=== PATIENT | male | born 1970 | race Caucasian/White ===

== ENCOUNTER → 2019-08-16 16:14 | Outpatient (CLI) | payer SELFPAY ==
--- NOTE | 2019-08-16 16:30 | RAD_ITS ---
HISTORY: CHRONIC LOW BACK PAIN, FLAIRED UP CURRENTLY D/T FALL ONTO WOOD PILE AND HEAVY LIFTING OVER LAST WEEK, PAIN RADIATES INTO RIGHT LEG TECHNIQUE: Lumbar spine 3 views Number of images including paperwork: 3 COMPARISON: Lumbar spine 3 views FINDINGS: VERTEBRAE: No acute fracture. VERTEBRAL ALIGNMENT: No traumatic subluxation. DISKS AND JOINTS: Mild disc space narrowing at L5-S1. SOFT TISSUES: Unremarkable paraspinous soft tissues. RAD/Lumbar Spine 2 or 3 Views IMPRESSION: No acute osseous abnormality. Mild disc space narrowing at L5-S1. at 2311 Reported and signed by: Joan Copeland MD Electronically Signed: Joan Copeland MD at 23:11 EDT Tel , Service support ,
--- NOTE | 2019-08-16 16:30 | RAD_ITS ---
HISTORY: CHRONIC LOW BACK PAIN, FLAIRED UP CURRENTLY D/T FALL ONTO WOOD PILE AND HEAVY LIFTING OVER LAST WEEK, PAIN RADIATES INTO RIGHT LEG ADDITIONAL HISTORY: None provided. COMPARISON: None TECHNIQUE: Sacrum/coccyx 3 views Number of images including paperwork: 3 FINDINGS: BONES: No acute fracture. JOINTS: No subluxation. SOFT TISSUES: No distinct foreign body. RAD/Sacrum-Coccyx min 2 Views IMPRESSION: No acute osseous abnormality. at 2309 Reported and signed by: Joan Copeland MD Electronically Signed: Joan Copeland MD at 23:09 EDT Tel , Service support ,
== END ==
DX: M54.5 Low back pain (principal)
CPT/HCPCS: 72100; 72220

== ENCOUNTER → 2019-10-15 12:07 | Outpatient (CLI) | payer MEDICAID, SELFPAY ==
--- NOTE | 2019-10-15 12:11 | RAD_ITS ---
STUDY: X-RAY CHEST REASON FOR EXAM: Male, 49 years old. Cough/shortness of breath. TECHNIQUE: PA and lateral views of the chest. COMPARISON: None. FINDINGS: The lungs are clear and expanded. There is no demonstrated pleural abnormality. Normal size heart. Normal mediastinum and nicole. Normal visualized pulmonary arteries. Normal visualized aortic arch and descending thoracic aorta. Normal visualized thoracic spine. Normal visualized ribs, clavicles, and shoulders. There is no demonstrated abnormality of the visualized soft tissue structures of the upper abdomen. RAD/Chest PA and Lateral IMPRESSION: Normal x-ray examination of the chest. Electronically Signed: Kristin Hugo MD at 2:18 EST , Service support ,
--- NOTE | 2019-10-15 12:22 | EKG12_ITS ---
Test Reason : OTHER CP Blood Pressure : / mmHG Vent. Rate : 066 BPM Atrial Rate : 066 BPM P-R Int : 184 ms QRS Dur : 074 ms QT Int : 368 ms P-R-T Axes : 083 -11 071 degrees QTc Int : 385 ms Normal sinus rhythm Normal ECG No previous ECGs available Confirmed by FEDERICO IRWIN, SHYANNE ([id number]), video editor TISH VENEGAS ([id number]) on 10/20/2019 11:39:51 AM Referred By: Ana Maria Lombardi Confirmed By:SHYANNE CABALLERO MD
== END ==
PROVIDERS: Referring Provider Nurse Practitioner Family; Visit Provider Nurse Practitioner Family
DX: R05 Cough (principal); R07.89 Other chest pain
CPT/HCPCS: 71046; 93005

== ENCOUNTER → 2019-10-25 10:13 | Outpatient (CLI) | payer MEDICAID, SELFPAY ==
--- NOTE | 2019-10-26 10:51 | PFT ---
INTRODUCTION: The patient is a 49-year-old male that presents for pulmonary function studies secondary to a diagnosis of dyspnea. Respiratory therapy reports good patient effort. Bronchodilators were used during testing. INTERPRETATION: Forced expiration spirometry demonstrates no evidence of a large airways obstructive ventilatory defect. There was no significant response to aerosolized bronchodilators. Spirograms are of good quality and plateau gradually indicating slow emptying of the lungs. Body plethysmography was performed and reveals lung volumes to be within normal limits. Diffusing capacity by single breath CO is within normal limits at 94% of predicted. IMPRESSION: Normal pulmonary function studies.
== END ==
DX: R06.00 Dyspnea, unspecified (principal)
CPT/HCPCS: 94060; 94726; 94729

== ENCOUNTER 2020-01-17 07:29 | Day surgery (SDC) | payer MEDICAID, SELFPAY ==
[2020-01-10 08:50] VITALS: BMI 20.2
--- NOTE | 2020-01-10 09:21 | HP_ITS ---
Intake Vital Signs 01/10/20 Height 5 ft 6 in 01/10/20 Weight: 125 lb 7 oz 01/10/20 BMI 20.2 01/10/20 BP 106/64 01/10/20 Blood Pressure Location Lt brachial 01/10/20 Position Sitting 01/10/20 Respiration 18 01/10/20 Pulse 67 01/10/20 Pulse Oximetry (%) 96 Intake Visit Reasons: EGD & C-SCOPE Consult Chief Complaint: diarrhea Manager Application Development Required: No Is patient in pain?: No Allergies No Known Allergies Allergy (Verified 01/10/20 08:50) Medications albuterol sulfate 90 mcg/actuation aerosol inhaler g INHALATION 01/10/20 [History Confirmed 01/10/20] budesonide-formoterol HFA 80 mcg-4.5 mcg/actuation aerosol inhaler g INHALATION 01/10/20 [History Confirmed 01/10/20] [facility] Medical History (Updated 01/10/20 @ 08:49 by Akosua Bennett) Back pain (Acute) COPD (chronic obstructive pulmonary disease) (Chronic) Anxiety (Acute) Diarrhea (Acute) Surgical History (Updated 01/10/20 @ 08:49 by Akosua Bennett) History of appendectomy (Acute) History of wisdom tooth extraction (Acute) Family History (Updated 01/10/20 @ 08:49 by Akosau Bennett) Mother Cancer uterine, ovary Grandfather Heart disease Grandmother Heart disease Social History (Updated 01/10/20 @ 09:[address] Sarah Lieberman MD) Smoking Status: Current every day smoker HPI HPI HPI: JOSE HARVEY, is a 49 M who presents to the office today for HPI HPI Surgical H&P: Yes HPI: JOSE HARVEY, is a 49 M who presents to the office today for diarrhea. Patient states he has had issues with diarrhea on and off for years. However about a month ago he had his tooth pulled on antibiotics and ibuprofen and it has been more constant and worse since. Patient also has some lower abdominal pain with this he rates currently about a 2?3/dull and before bowel movements they can get to about an 8/10. Patient has been eating less due to all this diarrhea even though he is hungry. Patient will get some nausea with the pain denies any vomiting. Patient had 1 day of reflux with this otherwise really denies symptoms of reflux or heartburn not on any medication for reflux. Patient is never had a colonoscopy or EGD, denies any family history of colon cancer ulcerative colitis or Crohn's disease. Patient does state that coffee seems to make the diarrhea worse but denies any other changes with other food. Patient would like to check for celiac as this has been a long-term issue patient is currently not on any restrictive diet. ROS General General: No weight change, appetite, fatigue, colon cancer, breast cancer or weakness HEENT HEENT: No difficulty swallowing, eye injury, eye surgery, swollen glands or hoarseness Endo Endocrine: No thyroid disease, diabetes mellitus, thyroid cancer, Hair loss, heat intolerance or cold intolerance Musc Musculoskeletal: Yes back problems; no arthritis, rheumatoid arthritis, gout or joint pain Cardio Cardiovascular: No murmur, pacemaker, heart disease, atrial fibrillation, high blood pressure, heart attack, heart stent, palpitations, shortness of breat with exertion or chest pain Psych Psychiatric: Yes anxiety; no depression or hearing voices Resp Respiratory: No shortness of breath, No sleep apnea, No cough, Yes COPD, No asthma, No emphysema, No wheezing Gastro Gastrointestinal: Yes abdominal pain, No nausea or vomiting, Yes diarrhea, No constipation, No blood in stool, No acid reflux, No hemorrhoids, No ulcers, No gallbladder problem, No black,tarry stools Stephen Hematologic: No blood thinners, No blood disorders, No bleeding, No anemia, No blood clots Neuro Neurologic: No weakness Exam Const General: cooperative, comfortable, no acute distress Resp Effort & Inspection: normal respiratory effort Cardio Rate: regular rate Heart Sounds: no murmurs GI Inspection: non-distended Palpation: soft, no guarding, no hernias, tender (Minimal left upper quadrant and right lower quadrant, no peritoneal signs) Neuro General: oriented x3 Extrem General: no clubbing, cyanosis or edema Psych Affect: normal affect Assessment & Plan Problems 1. Diarrhea R19.7 2. LUQ abdominal pain R10.12 3. Lower abdominal pain R10.30 Plan I have discussed the above with the patient. I have offered the patient EGD and colonoscopy for evaluation, will plan for random biopsies as well as a celiac biopsy due to the diarrhea I have explained the risks/benefits of the procedure and described the procedure. I have discussed the risks with the patient, including but not limited to: infection, bleeding, perforation of the GI tract requiring emergency surgery, inability to complete the procedure, injury to any internal organs, complications of anesthesia, etc. - the patient understands and agrees to proceed. I have answered all the patient's questions to the patient's satisfaction and the patient has no further questions. The patient has been given instructions for the colon cleansing preparation. One day of clears, MiraLAX Dulcolax split prep. Sarah Lieberman M.D. Pager: [phone] [facility] [address] [place] [address], [address] [place] [address] Office: [phone] Orders Orders: Colonoscopy Today EGD Today Plan Detail Follow Up We will schedule EGD and colonoscopy for 01/16 Coding Level of Care Code Off vis,new,level 3 Diagnoses Diarrhea R19.7 LUQ abdominal pain R10.12 Lower abdominal pain R10.30 01/10/20 0921 <Electronically signed by Sarah Anthony am, MD> Date _ Sarah Lieberman MD I have re-examined the patient. There are no clinical changes since date of exam.
[2020-01-17 07:51] VITALS: BP 99/75; PULSE 83; RESP 16; TEMP 36.5; O2SAT 99; BMI 21.1
[2020-01-17 08:15] LABS: Bedside Glucose 97 mg/dL (70-110)
[2020-01-17] MEDS: Lactated Ringers 1,000 ML 100 ML IV (08:18)
--- NOTE | 2020-01-17 08:30 | EGD_PTH ---
PATIENT: JOSE HARVEY LOC: EN U#:[id number] AGE/SX: 49/M ROOM: RE01/17/[address]: Dr. Sarah Lieberman MD : 1970 BED: DIS: 01/17/2020 SPEC #: [id number] RECD: 01/17/20 14:53 STATUS: ULISES TINA #: [id number] FERNANDO: 01/17/20 08:[address]: Sarah Lieberman DEPT: SURGICAL PATHOLOGY RECD BY: Noman Howard ENTERED: 01/18/20 07:48 SP TYPE: EGD BIOPSY OTHR DR: Ana Maria Lombardi, SEISMIC PROSPECTING SUPERVISOR-C Tissues: A - Duodenum, NOS B - Stomach, NOS C - Gastric mucous membrane D - Ileum, NOS E - Appendix, NOS F - Ascending colon G - COLON BIOPSY H - Transverse colon I - Descending colon J - Rectum, NOS Procedures: Special Stain Group II Surgery Specimen Level IV Alcian Blue/PAS (control) HEADER OPERATION: Colonoscopy, EGD ([facility] [place]) PRE-OP DIAGNOSIS: Diarrhea, LUQ pain, lower abdomen pain TISSUE SUBMITTED: A - Duodenum biopsy, rule out celiac, B - Prepyloric biopsy for Histo and H. pylori, C - GE junction biopsy, D - Adjacent to ileocecal valve polyp, E - Near appendix polyp, F - Distal ascending polyp, G - Hepatic flexure polyp biopsy, H - Transverse polyp, I - Descending colon random biopsy, J - Rectum polyp biopsy MICROSCOPIC DIAGNOSIS A. Duodenal biopsy: Fragments of small intestinal mucosa, no pathologic diagnosis. B. Prepyloric biopsy: Mild gastritis. See microscopic description and comment. C. GE junction, biopsy: A fragment of gastroesophageal mucosa with mild chronic inflammation. Intestinal metaplasia (goblet cell metaplasia) is not identified. See comment. D. Polyp adjacent to ileocecal valve, biopsy: Fragments of tubular adenoma. E. Polyp near appendiceal orifice, biopsy: Fragments of tubular adenoma. F. Distal ascending colon polyp, biopsy: Fragments of tubular adenoma. G. Hepatic flexure polyp, biopsy: Fragments of tubular adenoma. H. Transverse colon polyp, biopsy: Fragments of tubular adenoma. I. Descending colon, random biopsy: Fragments of colonic mucosa, no pathologic diagnosis. J. Rectum polyp, biopsy: Hyperplastic polyp. SJ:rg 01/19/20 COMMENT B. The results of immunohistochemistry for Helicobacter pylori will be reported separately ([id number]). C. The specimen predominantly consists of gastric mucosa. Alcian blue/PAS stain with matched control is used in the evaluation of the specimen. MICROSCOPIC DESCRIPTION Slides are reviewed. B. The specimen shows fragments of gastric mucosa with chronic inflammatory cell infiltrates in the lamina propria consisting of lymphocytes and plasma cells, consistent with mild chronic gastritis. GROSS DESCRIPTION A - Received in fixative is one container labeled with the patient's name and designated duodenum biopsy. The specimen consists of multiple irregular fragments of light goff soft tissue that in aggregate measure 0.9 x 0.2 x 0.1 cm. The specimen is totally submitted in one cassette. B - Received in fixative is one container labeled with the patient's name and designated prepyloric biopsy. The specimen consists of one irregular fragment of light goff soft tissue that measures 0.3 x 0.2 x 0.1 cm. The specimen is totally submitted in one cassette. C - Received in fixative is one container labeled with the patient's name and designated GE junction biopsy. The specimen consists of one irregular fragment of light goff soft tissue that measures 0.3 x 0.3 x 0.1 cm. The specimen is totally submitted in one cassette. D - Received in fixative is one container labeled with the patient's name and designated adjacent to ileocecal valve polyp. The specimen consists of multiple irregular fragments of light goff soft tissue that in aggregate measure 2 x 1 x 0.3 cm. The specimen is totally submitted in one cassette. E - Received in fixative is one container labeled with the patient's name and designated near appendiceal orifice polyp. The specimen consists of multiple irregular fragments of light goff soft tissue that in aggregate measure 2 x 0.3 x 0.1 cm. The specimen is totally submitted in one cassette. F - Received in fixative is one container labeled with the patient's name and designated distal ascending polyp. The specimen consists of multiple irregular fragments of light goff soft tissue that in aggregate measure 2 x 0.6 x 0.3 cm. The specimen is totally submitted in one cassette. G - Received in fixative is one container labeled with the patient's name and designated hepatic flexure biopsy polyp. The specimen consists of multiple irregular fragments of light goff soft tissue that in aggregate measure 0.6 x 0.3 x 0.1 cm. The specimen is totally submitted in one cassette. H - Received in fixative is one container labeled with the patient's name and designated transverse polyp. The specimen consists of two irregular fragments of light goff soft tissue that in aggregate measure 0.5 x 0.3 x 0.2 cm. The specimen is totally submitted in one cassette. I - Received in fixative is one container labeled with the patient's name and designated descending colon random biopsy. The specimen consists of multiple irregular fragments of light goff soft tissue that in aggregate measure 1 x 0.4 x 0.1 cm. The specimen is totally submitted in one cassette. J - Received in fixative is one container labeled with the patient's name and designated rectum polyp biopsy. The specimen consists of multiple irregular fragments of light goff soft tissue that in aggregate measure 0.6 x 0.2 x 0.1 cm. The specimen is totally submitted in one cassette. / SJ:rg 01/18/20 TC:1 CPT: 57786 x10, 68708
--- NOTE | 2020-01-17 08:30 | IMM_PTH ---
PATIENT: JOSE HARVEY LOC: EN U#:[id number] AGE/SX: 49/M ROOM: RE01/17/[address]: Dr. Sarah Lieberman MD : 1970 BED: DIS: 01/17/2020 SPEC #: [id number] RECD: 01/18/20 10:38 STATUS: ULISES RECarroll #: [id number] FERNANDO: 01/17/20 08:[address]: Sarah Lieberman DEPT: IMMUNOHISTOCHEMISTRY RECD BY: Alicia Sutherland ENTERED: 01/18/20 10:39 SP TYPE: IMMUNO OTHR DR: Ana Maria Lombardi, ABATEMENT WORKER-C Tissues: B - Stomach, NOS Procedures: H Pylori (initial) PHYSICIAN & INSTITUTION [place] [id number] SPECIMEN INFORMATION: Tissue Source: B - Prepyloric biopsy Clinical Info: Diarrhea, LUQ pain, lower abdomen pain Specimen Number: [id number] CPT code: 33441 METHODOLOGY: Deparaffinized sections of prefer/formalin-fixed tissue or PAP/DQ stained slides are incubated with monoclonal/polyclonal antibodies/oligonucleotide probes. Localization is made via biotin free immunoperoxidase method. Appropriate controls are performed and reacted as expected. Results on target cell population are indicated in the following table: RESULTS: ANTIBODY / CLONE RESULT Block B H Pylori (polyclonal) negative These tests were developed and their performance characteristics determined by [facility]. They may not have been cleared or approved by the [place].S. Food and Drug Administration. The FDA has determined that such clearance or approval is not necessary. INTERPRETATION: B. Prepyloric biopsy: Negative for Helicobacter pylori organisms. SJ:stephanie 01/19/20
[2020-01-17 09:18] VITALS: BP 140/75; BP 99/75; PULSE 70; RESP 22; TEMP 36.3; O2SAT 95
--- NOTE | 2020-01-17 09:22 | OP.EGD_ITS ---
Patient Name: Igor Vences Procedure Date: 01/17/2020 8:01 AM Date of : 1970 Age: 49 Procedure: Upper GI endoscopy Indications: Abdominal pain in the left upper quadrant, Diarrhea Providers: Sarah Lieberman MD Referring MD: Ana Maria Lombardi Medicines: Monitored Anesthesia Care Patient Profile: This is a 49 year old male. Complications: No immediate complications. Procedure: Pre-Anesthesia Assessment: - Prior to the procedure, a History and Physical was performed, and patient medications and allergies were reviewed. The patient's tolerance of previous anesthesia was also reviewed. The risks and benefits of the procedure and the sedation options and risks were discussed with the patient. All questions were answered, and informed consent was obtained. Prior Anticoagulants: The patient has taken no previous anticoagulant or antiplatelet agents. ASA Grade Assessment: Per anesthesia. After reviewing the risks and benefits, the patient was deemed in satisfactory condition to undergo the procedure. After obtaining informed consent, the endoscope was passed under direct vision. Throughout the procedure, the patient's blood pressure, pulse, and oxygen saturations were monitored continuously. The gastroscope was introduced through the mouth, and advanced to the second part of duodenum. The upper GI endoscopy was accomplished without difficulty. The patient tolerated the procedure well. Scope In: 8:24:08 AM Scope Out: 8:32:54 AM Total Procedure Duration Time 0 hours 8 minutes 46 seconds Findings: The Z-line was irregular and was found 40 cm from the incisors. Biopsies were taken with a cold forceps for histology. Biopsies for histology were taken with a cold forceps in the second portion of the duodenum for evaluation of celiac disease. The examined duodenum was normal. Mild mucosal changes characterized by erythema were found in the prepyloric region of the stomach. Biopsies were taken with a cold forceps for histology. Biopsies were taken with a cold forceps for Helicobacter pylori cultures. A small hiatal hernia was present. Impression: - Z-line irregular, 40 cm from the incisors. Biopsied. - Normal examined duodenum. - Erythematous mucosa in the prepyloric region of the stomach. Biopsied. - Small hiatal hernia. - Biopsies were taken with a cold forceps for evaluation of celiac disease. Recommendation: - Await pathology results. - Discharge patient to home. - Resume previous diet. - Use Protonix (pantoprazole) 40 mg PO daily. - Continue present medications. Procedure Code(s): --- Professional --- 88383, Esophagogastroduodenoscopy, flexible, transoral; with biopsy, single or multiple Diagnosis Code(s): --- Professional --- K22.8, Other specified diseases of esophagus K31.89, Other diseases of stomach and duodenum K44.9, Diaphragmatic hernia without obstruction or gangrene R10.12, Left upper quadrant pain R19.7, Diarrhea, unspecified CPT copyright 2017 [employer]. All rights reserved. The codes documented in this report are preliminary and upon network desktop support specialist review may be revised to meet current compliance requirements. MD Sarah Yeboah MD 01/17/2020 9:21:19 AM This report has been signed electronically. Number of Addenda: 0 Note Initiated On: 01/17/2020 8:01 AM
--- NOTE | 2020-01-17 09:22 | OP.CCLET_ITS ---
01/17/2020 Ana Maria Lombardi Re : Upper GI endoscopy procedure for Igor Vences Dear Harjit This procedure was performed on Friday, January 17, 2020. My impressions and recommendations are as follows: Impressions : - Z-line irregular, 40 cm from the incisors. Biopsied. - Normal examined duodenum. - Erythematous mucosa in the prepyloric region of the stomach. Biopsied. - Small hiatal hernia. - Biopsies were taken with a cold forceps for evaluation of celiac disease. Recommendations : - Await pathology results. - Discharge patient to home. - Resume previous diet. - Use Protonix (pantoprazole) 40 mg PO daily. - Continue present medications. My findings are described in the full procedure note, which is enclosed. If I can be of further assistance, please feel free to contact me at Doctor phone number(s): , Work: . Sincerely, MD Sarah Yeboah MD 01/17/2020 9:21:19 AM This report has been signed electronically.
[2020-01-17 09:25] VITALS: BP 100/65; BP 99/75; PULSE 53; RESP 16; O2SAT 97
[2020-01-17 09:30] VITALS: BP 116/79; BP 99/75; PULSE 81; RESP 20; O2SAT 100
--- NOTE | 2020-01-17 09:31 | OP.COLON_ITS ---
Patient Name: Igor Vences Procedure Date: 01/17/2020 8:33 AM Date of : 1970 Age: 49 Procedure: Colonoscopy Indications: Chronic diarrhea Providers: Sarah Lieberman MD Referring MD: Ana Maria Lombardi Medicines: Monitored Anesthesia Care Patient Profile: This is a 49 year old male. This is a 49 year old male. Last Colonoscopy: none. The patient's first colonoscopy is today. Complications: No immediate complications. Procedure: Pre-Anesthesia Assessment: - Prior to the procedure, a History and Physical was performed, and patient medications and allergies were reviewed. The patient's tolerance of previous anesthesia was also reviewed. The risks and benefits of the procedure and the sedation options and risks were discussed with the patient. All questions were answered, and informed consent was obtained. Prior Anticoagulants: The patient has taken no previous anticoagulant or antiplatelet agents. ASA Grade Assessment: Per anesthesia. After reviewing the risks and benefits, the patient was deemed in satisfactory condition to undergo the procedure. After I obtained informed consent, the scope was passed under direct vision. Throughout the procedure, the patient's blood pressure, pulse, and oxygen saturations were monitored continuously. The Colonoscope was introduced through the anus and advanced to the cecum, identified by the appendiceal orifice, ileocecal valve and palpation. The colonoscopy was performed without difficulty. The patient tolerated the procedure well. The quality of the bowel preparation was good. Scope In: 8:35:17 AM Scope Withdrawal Time 0 hours 31 minutes 3 seconds Scope Out: 9:10:54 AM Total Procedure Duration Time 0 hours 35 minutes 37 seconds Findings: The perianal and digital rectal examinations were normal. A 5 mm polyp was found in the appendiceal orifice. The polyp was semi-sessile. The polyp was removed with a cold biopsy forceps. Resection and retrieval were complete. A 27 mm polyp was found in the ileocecal valve. The polyp was carpet-like. Polyp resection was incomplete due to the polypectomy being technically difficult and complex. Biopsies were taken with a cold forceps for histology. Two semi-pedunculated polyps were found in the transverse colon and distal ascending colon. The polyps were 4 to 7 mm in size. These polyps were removed with a hot snare. Resection and retrieval were complete. Two sessile polyps were found in the rectum and hepatic flexure. The polyps were less than 5 mm in size. These polyps were removed with a cold biopsy forceps. Resection and retrieval were complete. Biopsies were taken with a cold forceps in the descending colon for histology. Impression: - One 5 mm polyp at the appendiceal orifice, removed with a cold biopsy forceps. Resected and retrieved. - One 27 mm polyp at the ileocecal valve. Biopsied. - Two 4 to 7 mm polyps in the transverse colon and in the distal ascending colon, removed with a hot snare. Resected and retrieved. - Two less than 5 mm polyps in the rectum and at the hepatic flexure, removed with a cold biopsy forceps. Resected and retrieved. - Biopsies were taken with a cold forceps for histology in the descending colon. Recommendation: - Discharge patient to home. - Resume previous diet. - Continue present medications. - Await pathology results. - Refer to a registered veterinary technician to be schedule for incomplete cecal polypectomy adjacent to ileocecal valve. - Repeat colonoscopy at appointment to be scheduled incomplete polyp resection. Procedure Code(s): --- Professional --- 34554, Colonoscopy, flexible; with removal of tumor(s), polyp(s), or other lesion(s) by snare technique 37488, 59, Colonoscopy, flexible; with biopsy, single or multiple Diagnosis Code(s): --- Professional --- D12.1, Benign neoplasm of appendix D12.0, Benign neoplasm of cecum D12.2, Benign neoplasm of ascending colon K62.1, Rectal polyp D12.3, Benign neoplasm of transverse colon (hepatic flexure or splenic flexure) K52.9, Noninfective gastroenteritis and colitis, unspecified CPT copyright 2017 [employer]. All rights reserved. The codes documented in this report are preliminary and upon surveyor geodetic review may be revised to meet current compliance requirements. MD Sarah Yeboah MD 01/17/2020 9:30:44 AM This report has been signed electronically. Number of Addenda: 0 Note Initiated On: 01/17/2020 8:33 AM
--- NOTE | 2020-01-17 09:31 | OP.CCLET_ITS ---
01/17/2020 Ana Maria Lombardi Re : Colonoscopy procedure for Igor Vences Dear Harjit This procedure was performed on Friday, January 17, 2020. My impressions and recommendations are as follows: Impressions : - One 5 mm polyp at the appendiceal orifice, removed with a cold biopsy forceps. Resected and retrieved. - One 27 mm polyp at the ileocecal valve. Biopsied. - Two 4 to 7 mm polyps in the transverse colon and in the distal ascending colon, removed with a hot snare. Resected and retrieved. - Two less than 5 mm polyps in the rectum and at the hepatic flexure, removed with a cold biopsy forceps. Resected and retrieved. - Biopsies were taken with a cold forceps for histology in the descending colon. Recommendations : - Discharge patient to home. - Resume previous diet. - Continue present medications. - Await pathology results. - Refer to a cut lace machine operator to be schedule for incomplete cecal polypectomy adjacent to ileocecal valve. - Repeat colonoscopy at appointment to be scheduled incomplete polyp resection. My findings are described in the full procedure note, which is enclosed. If I can be of further assistance, please feel free to contact me at Doctor phone number(s): , Work: . Sincerely, MD Sarah Yeboah MD 01/17/2020 9:30:44 AM This report has been signed electronically.
[2020-01-17 09:36] VITALS: BP 109/81; BP 99/75; PULSE 76; RESP 20; TEMP 36.5; O2SAT 100
[2020-01-17 10:04] VITALS: BP 99/75
== END 2020-01-17 10:32 | disposition home or self-care (01) ==
LOC: EN 07:30 → AC 07:32
PROVIDERS: PCP Nurse Practitioner Family; Referring Provider Nurse Practitioner Family; Visit Provider Surgery
PROC: 0DJD8ZZ Inspection of Lower Intestinal Tract, Via Natural or Artificial Opening Endoscopic (ICD-10-PCS; CPT 45378; principal; 2020-01-17 08:25)
DX: D12.0 Benign neoplasm of cecum (principal); D12.1 Benign neoplasm of appendix; D12.2 Benign neoplasm of ascending colon; D12.3 Benign neoplasm of transverse colon; K52.9 Noninfective gastroenteritis and colitis, unspecified; K62.1 Rectal polyp; K22.8 Other specified diseases of esophagus; K31.89 Other diseases of stomach and duodenum; K44.9 Diaphragmatic hernia without obstruction or gangrene; K29.70 Gastritis, unspecified, without bleeding; K21.9 Gastro-esophageal reflux disease without esophagitis; J44.9 Chronic obstructive pulmonary disease, unspecified; M54.9 Dorsalgia, unspecified; F41.9 Anxiety disorder, unspecified; F17.200 Nicotine dependence, unspecified, uncomplicated
CPT/HCPCS: 43239; 45380; 45385; 82962; 88305; 88313; 88342; J7120; J1610; J2405

== ENCOUNTER → 2020-07-04 10:29 | Outpatient (CLI) | payer MEDICAID, SELFPAY ==
[2020-07-04 10:44] LABS: Absolute Lymphocyte Count 3.24 X10^3/uL (0.83-4.51); Absolute Neutrophil Count 7.3 X10^3/uL (2.0-7.7); Basophil# 0.04 X10^3/uL; Basophil% 0.3 % (0-1); Eosinophil# 0.11 X10^3/uL; Eosinophils% 0.9 % (0-5); Hematocrit 48.7 % (40-54); Lymphocyte # 3.24 X10^3/ul (4.0); Lymphocyte % 27.6 % (19-41); Mean Corp Hgb Conc 32.9 g/dL (32-36); Mean Corpuscular Hgb 30.4 pg (27.0-32.0); Mean Corpuscular Volume 92.6 fL (80-94); Mean Platelet Vol. 9.7 fl (6.2-12.0); Monocyte# 1.02 X10^3/uL; Monocyte% 8.7 % (0-10); NRBC Flagged by Analyzer 0 % (0-5); Neutrophil # 7.28 X10^3/uL (2.7-7.7); Neutrophil % 62.2 % (47-70); Platelet Count 377 K/mm3 (150-450); RBC Distribution Width CV 11.8 % (11.6-14.6); RBC Distribution Width SD 40.1 fl (35.1-43.9); Red Blood Count 5.26 M/mm3 (4.6-6.2); White Blood Count 11.7 K/mm3 (4.4-11.0)
[2020-07-04 11:23] LABS: Vitamin D,25 Hydroxy 33.8 ng/mL
[2020-07-04 11:29] LABS: AST(SGOT) 17 U/L (15-37); Alanine Aminotransfer ALT/SGPT 30 U/L (16-61); Albumin, Serum 4.2 g/dL (3.2-5.0); Alkaline Phosphatase 116 U/L (45-117); Anion Gap 2 (5-15); BUN 17 mg/dL (7-18); BUN/Creat Ratio 15.9 RATIO (10-20); Calcium,Total 9.2 mg/dL (8.5-10.1); Chloride 105 mmol/L (98-107); Cholesterol 189 mg/dL (200); Creatinine, Serum 1.07 mg/dL (0.70-1.30); EST Glomerular Filtration Rate 78 mL/min (>60); Est Glom Filt Rate - Afr Amer 95 mL/min (>60); Globulin 4.1 g/dL (2.2-4.2); Glucose 96 mg/dL (74-106); High Density Lipoprotein 46 mg/dL; Potassium 3.9 mmol/L (3.5-5.1); Protein, Total 8.3 g/dL (6.4-8.2); Sodium Level 136 mmol/L (136-145); Triglycerides 115 mg/dL; Very Low Density Lipoprotein 23 mg/dL (5-40)
== END ==
PROVIDERS: Nurse Practitioner Family
DX: E78.5 Hyperlipidemia, unspecified (principal); E55.9 Vitamin D deficiency, unspecified
CPT/HCPCS: 36415; 80053; 80061; 82306; 85025

== ENCOUNTER → 2020-08-25 10:20 | Outpatient (CLI) | payer MEDICAID, SELFPAY ==
--- NOTE | 2020-08-14 11:22 | RAD_ITS ---
STUDY: X-RAY - ORBITS REASON FOR EXAM: Male, 50 years old. MRI CLEARANCE, HX OF METAL TO EYE TECHNIQUE: 2 view(s) of the orbits were obtained. COMPARISON: None. FINDINGS: Normal bilateral orbits without a metallic orbital foreign body. Normal visualized facial bones. Normal paranasal sinuses. The soft tissue structures are unremarkable. RAD/Orbits for Foreign Body IMPRESSION: No demonstrated metallic orbital foreign body. The patient is cleared for an MRI examination. Electronically Signed: Nikky Mei MD at 6:40 EDT , Service support ,
--- NOTE | 2020-08-25 10:30 | MRI_ITS ---
STUDY: MRI LUMBAR SPINE WITHOUT CONTRAST REASON FOR EXAM: Male, 50 years old. low back pain, bilat. leg pain TECHNIQUE: Standardized fat and water weighted pulse sequences were obtained in the sagittal and axial planes. COMPARISON: X-ray 08/16/2019 FINDINGS: T12-L1: Normal endplates. Normal disc height, hydration and morphology. Normal bilateral facet joints. Normal central canal and bilateral lateral recesses. Normal bilateral intervertebral neural foramina. Normal lumbar lordosis. There is no substantial scoliosis. Normal conus medullaris that terminates at the L1. L1-2: Normal endplates. Normal disc height, hydration and morphology. Normal bilateral facet joints. Normal central canal and bilateral lateral recesses. Normal bilateral intervertebral neural foramina. L2-3: Normal endplates. Normal disc height, hydration and morphology. Normal bilateral facet joints. Normal central canal and bilateral lateral recesses. Normal bilateral intervertebral neural foramina. L3-4: Normal endplates. Normal disc height, hydration and morphology. Normal bilateral facet joints. Normal central canal and bilateral lateral recesses. Normal bilateral intervertebral neural foramina. L4-5: Mild broad disc protrusion produces mild spinal stenosis and mild bilateral neural foraminal stenosis. L5-S1: Mild broad disc protrusion produces mild spinal stenosis and the moderate by lateral neural foraminal stenosis with abutment of the exiting L5 nerve roots bilaterally. Normal visualized sacral ala. Normal visualized paraspinous soft tissue structures. MRI/Spine Lumbar (Routine) IMPRESSION: Mild degenerative disc disease as described above. Electronically Signed: Robi Denson MD at 11:31 EDT Tel , Service support ,
== END ==
PROVIDERS: Referring Provider Orthopaedic Surgery Orthopaedic Surgery of the Spine; Visit Provider Orthopaedic Surgery Orthopaedic Surgery of the Spine
DX: M54.5 Low back pain (principal)
CPT/HCPCS: 70030; 72148

== ENCOUNTER 2021-04-16 11:30 | Emergency (ER) | payer MEDICAID, SELFPAY ==
[2021-04-16 11:31] VITALS: BP 98/73; PULSE 90; RESP 16; TEMP 36.6; O2SAT 98; BMI 21.9
[2021-04-16] MEDS: Tetracaine 0.5% Ophthalmic Bottle OPHTHALMIC (13:45)
[2021-04-16] MEDS: Fluorescein 1 MG STRIP 1 STRIP OPHTHALMIC (13:45)
--- NOTE | 2021-04-16 14:17 | EDS_ITS ---
HPI History of Present Illness Chief Complaint: Eye Problem Informant: patient Onset/Context/Timing Location: Right Eye Onset: Days (2) Context: Sudden Onset Timing: Continuous Worsened by: Nothing Relieved by: Nothing Associated Symptoms Associated Symptoms - Eyes: Burning, Crusting, Drainage, Foreign body sensation, Matting, Pain and Redness; Negative for Eyelid swelling, Itching and Photophobia History of injury: Direct trauma Visual correction: Glasses Narrative Narrative: Patient presents with foreign body sensation to his right eye that occurred 2 days ago. Patient states he was cutting metal when something got into his eye under his glasses. Patient states the right eye has been red. Patient states it has been crusting and matting in the morning. Patient denies any visual changes however. Patient does admit to some burning. PFSH PFS Medical History Anxiety Back pain COPD (chronic obstructive pulmonary disease) Diarrhea Home Medications albuterol sulfate 1 - 2 puff INHALATION Q6H PRN PRN 01/13/20 [History Last Taken Unknown] budesonide-formoterol 1 puff IH BID 01/13/20 [History Last Taken 01/17/20] pantoprazole 40 mg PO DAILY #30 tablet. 01/17/20 [Rx Last Taken Unknown] sucralfate 1 gm PO 4X/DAY #120 tab 01/17/20 [Rx Last Taken Unknown] dicyclomine 20 mg tablet 20 mg PO BID #30 tab 01/20/20 [Rx Last Taken Unknown] Allergy/AdvReac Type Severity Reaction Status Date / Time No Known Allergies Allergy Verified 04/16/21 11:34 Family History (Updated 01/10/20 @ 08:49 by Akosua Bennett) Mother Cancer uterine, ovary Grandfather Heart disease Grandmother Heart disease Surgical History History of appendectomy History of wisdom tooth extraction Social History Smoking Status: Current every day smoker tobacco type: cigarettes ROS ROS ED Constitutional Constitutional ED: Denies chills or fever(s) Eyes Eyes: Denies blurry vision or change in vision ENT ENT ED: Denies rhinorrhea or sore throat Cardiovascular Cardiovascular: Denies chest pain or palpitations Respiratory/Chest Respiratory/Chest: Denies cough or dyspnea Gastrointestinal Gastrointestinal: Denies nausea or vomiting Genitourinary Genitourinary ED: Denies dysuria or hematuria Musculoskeletal Musculoskeletal: Denies back pain or neck pain Integumentary Denies abscess or rash Neurologic Neurologic: Denies headache(s) or weakness Allergic/Immunologic Allergic/Immunologic ED: Denies mouth swelling or urticaria EXAM Physical Exam Const Vital Signs: 04/16/21 11:31 Temperature 97.9 F Temperature Source Temporal Pulse Rate 90 Respiratory Rate 16 Blood Pressure 98/73 Blood Pressure Mean 81 Pulse Ox 98 Oxygen Delivery Method Room Air Positive well nourished and well developed General Appearance ED: well developed HEENT atraumatic Eyes Alignment: alignment normal Periorbital: periorbital findings normal Eyelid: eyelids normal Conjunctiva: conjunctiva abnormal right chemosis and injection Sclera: sclera normal Pupil: PERRL and accommodation reflex normal Slit Lamp: slit lamp exam performed with fluorescein, lids/lashes/lacrimal system normal appearing, conjunctiva/sclera diffuse conjunctiva injection, cornea rust ring present and foreign body present and anterior chamber normal appearing Neck supple and no JVD Neuro oriented x3, CN's II-XII intact bilaterally, moves all extremities and no sensory deficits noted Sensorium / Orientation: alert MDM MDM MDM Narrative Medical decision making narrative: Tetracaine and fluorescein dye was applied to the right eye. The foreign body and rust ring was removed with ophthalmic yenifer. Patient tolerated the procedure well. Patient was given bacitracin ophthalmic ointment here. Patient was instructed to use this 3 times daily. Patient was instructed to follow-up with ophthalmology in 1 to 2 days. Patient understood and was agreeable with the plan. All questions were answered. Discharge Plan Triage Chief Complaint: Eye Problem ED Provider: Alex Su Dx/Rx/DC Orders Clinical Impression: Foreign body in cornea, right eye, initial encounter Instructions: ED Corneal Abrasion, ED Corneal Foreign Body, Removed Prescriptions: No Action albuterol sulfate 1 INHALER inhaler 1 - 2 puff inhalation Q6H PRN PRN (Reason: copd) RF: 0 budesonide-formoterol 10.2 GM HFA aerosol inhaler 1 puff IH BID RF: 0 sucralfate 1 GM tablet 1 gm PO 4X/DAY Qty: 120 RF: 0 pantoprazole 40 MG tablet,delayed release (DR/EC) 40 mg PO DAILY Qty: 30 RF: 3 dicyclomine 20 mg tablet 20 mg PO BID Qty: 30 RF: 1 [facility]: Mo Cline MD [STAFF PHYSICIAN] - 2 Days [facility] Ross [Primary Care Provider] - 1-2 Days if not improving Disposition Disposition: Home, self care Discharge Date/Time: 04/16/21 14:42
[2021-04-16 14:41] VITALS: BP 98/69; PULSE 67; RESP 18; O2SAT 97
== END 2021-04-16 14:42 | disposition home or self-care (01) ==
PROVIDERS: Emergency Provider Emergency Medicine
DX: T15.01XA Foreign body in cornea, right eye, initial encounter (principal); X58.XXXA Exposure to other specified factors, initial encounter; Y93.9 Activity, unspecified; Y92.9 Unspecified place or not applicable; Y99.9 Unspecified external cause status; J44.9 Chronic obstructive pulmonary disease, unspecified; F17.210 Nicotine dependence, cigarettes, uncomplicated; Z79.899 Other long term (current) drug therapy
CPT/HCPCS: 99283

== ENCOUNTER → 2021-09-10 08:33 | Outpatient (CLI) | payer MEDICAID, SELFPAY ==
[2021-09-10 09:53] LABS: Absolute Lymphocyte Count 2.18 X10^3/uL (0.83-4.51); Absolute Neutrophil Count 5.4 X10^3/uL (2.0-7.7); Basophil# 0.04 X10^3/uL; Basophil% 0.5 % (0-1); Eosinophil# 0.05 X10^3/uL; Eosinophils% 0.6 % (0-5); Hematocrit 46.5 % (40-54); Hemoglobin 15.2 g/dL (13.0-16.5); Lymphocyte # 2.18 X10^3/ul (0.83-4.51); Lymphocyte % 25.6 % (19-41); Mean Corp Hgb Conc 32.7 g/dL (32-36); Mean Corpuscular Hgb 30.3 pg (27.0-32.0); Mean Corpuscular Volume 92.8 fL (80-94); Mean Platelet Vol. 10.9 fl (6.2-12.0); Monocyte# 0.83 X10^3/uL; Monocyte% 9.7 % (0-10); NRBC Flagged by Analyzer 0 % (0-5); Neutrophil # 5.38 X10^3/uL (2.7-7.7); Neutrophil % 63.1 % (47-70); Platelet Count 237 K/mm3 (150-450); Red Blood Count 5.01 M/mm3 (4.6-6.2); White Blood Count 8.5 K/mm3 (4.4-11.0)
[2021-09-10 10:34] LABS: ALB/GLOB Ratio 0.9 RATIO (0.9-2.4); AST(SGOT) 19 U/L (15-37); Alanine Aminotransfer ALT/SGPT 31 U/L (16-61); Albumin, Serum 3.7 g/dL (3.2-5.0); Alkaline Phosphatase 99 U/L (45-117); Anion Gap 5 (5-15); BUN 12 mg/dL (7-18); BUN/Creat Ratio 11.9 RATIO (10-20); Calcium,Total 9.1 mg/dL (8.5-10.1); Chloride 103 mmol/L (98-107); Cholesterol 183 mg/dL (200); Creatinine, Serum 1.01 mg/dL (0.70-1.30); EST Glomerular Filtration Rate 83 mL/min (>60); Est Glom Filt Rate - Afr Amer 101 mL/min (>60); Globulin 4.2 g/dL (2.2-4.2); Glucose 82 mg/dL (74-106); High Density Lipoprotein 54 mg/dL; PSA,Total - Annual Screen 0.67 ng/mL (0.00-4.00); Potassium 3.7 mmol/L (3.5-5.1); Protein, Total 7.9 g/dL (6.4-8.2); Sodium Level 137 mmol/L (136-145); Triglycerides 120 mg/dL; Very Low Density Lipoprotein 24 mg/dL (5-40)
== END ==
DX: E78.5 Hyperlipidemia, unspecified (principal); Z12.5 Encounter for screening for malignant neoplasm of prostate
CPT/HCPCS: 36415; 80053; 80061; 84153; 84443; 85025; G0103